=== PATIENT | male | born 1995 | race Caucasian/White ===

== ENCOUNTER 2017-01-10 04:23 | Observation (INO) | payer BC ==
[~2017-01-10] VITALS: Ht 175.3 cm; Wt 77.0 kg
[2017-01-10] MEDS ORDERED: METOCLOPRAMIDE INJ 10MG/2ML VIAL (J2765) As Ordered ONE (04:57)
[2017-01-10] MEDS ORDERED: HYDROmorphone HCL 1 MG/ML SYRINGE (J1170) As Ordered ONE ×2 (04:57→07:24)
[2017-01-10 05:21] LABS: BASO % 0.5 % (0.0-1.0); EOS % 0.7 % (0.0-3.0); LARGE UNSTAINED CELL # 0.1 K/mm3 (0.0-0.4); LARGE UNSTAINED CELL % 1.7 % (0.0-4.0); LYMPH % 11.3 % (24.0-44.0); MEAN CORPUSCULAR HEMOGLOBIN 30.1 pg (27.0-33.0); MEAN CORPUSCULAR HGB CONC 33.1 g/dl (32.0-36.5); MEAN CORPUSCULAR VOLUME 90.9 fl (80.0-96.0); MONO # 0.7 K/mm3 (0.0-0.8); MONO % 8.6 % (0.0-5.0); NEUTROPHILS % 77.3 % (36.0-66.0); PLATELET COUNT, AUTOMATED 229 k/mm3 (150-450); RED CELL DISTRIBUTION WIDTH 13.1 % (11.5-14.5); WHITE BLOOD COUNT 7.8 K/mm3 (4.0-10.0)
[2017-01-10 05:31] LABS: ALBUMIN 3.7 GM/DL (3.2-5.2); ALBUMIN/GLOBULIN RATIO 0.84 (1.00-1.93); ALKALINE PHOSPHATASE 61 U/L (45-117); ALT/SGPT 38 U/L (12-78); AMYLASE 36 U/L (25-115); ANION GAP 10 MEQ/L (8-16); AST/SGOT 23 U/L (15-37); BILIRUBIN,DIRECT 0.1 MG/DL (0.0-0.2); BILIRUBIN,TOTAL 0.5 MG/DL (0.2-1.0); BLOOD UREA NITROGEN 17 MG/DL (7-18); CALCIUM LEVEL 8.4 MG/DL (8.5-10.1); CARBON DIOXIDE LEVEL 28 MEQ/L (21-32); CHLORIDE LEVEL 98 MEQ/L (98-107); CREATININE FOR GFR 1.36 MG/DL (0.70-1.30); GLUCOSE, FASTING 91 MG/DL (70-105); POTASSIUM SERUM 4.1 MEQ/L (3.5-5.1); SODIUM LEVEL 136 MEQ/L (136-145); TOTAL PROTEIN 8.1 GM/DL (6.4-8.2)
[2017-01-10] MEDS ORDERED: ISOVUE-370 76% 100ML VIAL (Q9967) As Ordered ONE (05:39)
--- NOTE | 2017-01-10 06:40 | REPUSA ---
CLINICAL HISTORY: Abdominal pain. TECHNIQUE: Multiple axial, sagittal and coronal CT images were obtained through the abdomen and pelvi s after administration of intravenous contrast material. COMMENTS: The liver is of uniform attenuation without mass or defect. There is no intra or extrahepatic biliary ductal dilatation. The spleen is normal. The gallbladder is within normal limits. The pancreas is of normal contour and attenuation characteristics. There is no evidence of adrenal mass. Both kidneys demonstrate prompt and equal nephrograms. The kidneys are normal in size, shape and conf iguration. There is no evidence of renal or ureteral mass. No renal or ureteral calculi are identifie d. There is no hydroureter or hydronephrosis. Appendix is entirely filled with fluid and contains a small appendicolith, please correlate clinicall y to exclude early or mild acute appendicitis. There is no bowel wall thickening. No evidence for sm all or large bowel obstruction. There is no evidence of abdominal ascites or lymphadenopathy. There is no evidence of intrinsic or extrinsic bladder mass. There is no pelvic ascites or lymphadeno enrique. Images of the lung bases show no evidence of pleural or parenchymal mass. There are no pleural effusi ons. The bony structures are free of lytic or blastic lesions. IMPRESSION: Appendix is entirely filled with fluid and contains a small appendicolith, please correlate clinicall y to exclude early or mild acute appendicitis. Thank you for your kind referral of this patient.
[2017-01-10] MEDS ORDERED: IBUP60TA PO (08:37)
[2017-01-10] MEDS ORDERED: HUMI40KI SC (08:37)
[2017-01-10] MEDS ORDERED: NORCO, ANEXSIA 5/325MG TABLET (HYDROcodone/ACETAMINOPHEN) PO PRN (08:45)
[2017-01-10] MEDS ORDERED: MORPHINE 2 MG/ML 1ML SYRINGE IV PRN (08:45)
--- NOTE | 2017-01-10 09:21 | HPE ---
DATE OF PLACEMENT ON OBSERVATION: 01/10/2017 REASON FOR OBSERVATION: Abdominal pain with nausea and vomiting. HISTORY OF PRESENT ILLNESS: The patient is a 21-year-old man who presented to the emergency department at 04:23 in the morning on January 10 complaining of primarily sharp epigastric pains. The patient describes that he has been ill for perhaps 2 or 3 days. He describes having had some laryngitis with a hoarse voice with sensation of some night time chills over the last 2-3 days. He has not felt like eating for several days. On the , he developed some nausea and had multiple episodes of some bilious vomiting during the course of the afternoon and into the evening. At about 06:00 p.m. on the he noted sharper epigastric pains. He was unable to eat and the pain became intolerable and he presented to the emergency department at 0423 hours. He has been evaluated with some labs and had a CT scan of the abdomen and pelvis performed. The emergency department physician described some right lower quadrant tenderness and the CT scan described some fluid within the appendix with a small appendicolith and I was asked to see the patient regarding the possibility of appendicitis. I do not think he has appendicitis, but he has what I believe to be some form of viral gastroenteritis. He is currently not able to take an oral diet adequately and is therefore not able to take adequate by mouth (p.o.) analgesia so he will be placed on observation until he is capable of tolerating at least a liquid diet and keeping down some oral pain medications. MEDICATIONS: The patient's only routine medication is Humira subcutaneously every other week. His last dose was about 10 days ago. MEDICAL HISTORY: Significant for psoriasis. SURGICAL HISTORY: Significant for a right shoulder procedure. SOCIAL HISTORY: The patient is a never smoker. He is currently attending [employer] for baseball with work study. FAMILY HISTORY: Noncontributory. REVIEW OF SYSTEMS: Review of systems revealed no history of underlying heart, lung or gastrointestinal problems. He denies any recent diarrhea. He has had no dysuria or hematuria. He denies any hematemesis, melena or hematochezia. PHYSICAL EXAMINATION: Reveals a fit appearing young man lying quietly on the hospital stretcher. His most recent vital signs showed a blood pressure of 137/69, pulse of 105, respirations of 18 and a temperature of 100.3. He is alert, oriented and cooperative. He complains primarily of sharper pains in the epigastrium. He does have some nausea. He sounds hoarse when he speaks. Sclerae are anicteric. Mucous membranes are moist to slightly tacky. The neck is supple without mass or bruit. Heart: Exam shows a regular rhythm, but he is slightly tachycardiac at about 100-110. The lungs are clear to auscultation bilaterally. The abdomen is flat. He does have bowel sounds in all four quadrants. There is no evident hernia. There is no tympany to percussion. There is no distinct tenderness to percussion. On palpation he has tenderness in the epigastrium. He does report that palpation in the left upper quadrant and right upper quadrant does seem to cause increased tenderness in the epigastrium. He is soft in the right lower quadrant without evident tenderness in this area. Extremities are without edema and he has palpable radial and dorsalis pedis pulses bilaterally. LABORATORY STUDIES: A CBC showed a white count of 7.8 with a hemoglobin of 16, hematocrit of 48 and a platelet count of 229,000. Differential shows 77% neutrophils, 11% lymphocytes and 9 monocytes. His chemistry profile shows normal electrolytes with a BUN of 17, creatinine 1.36 and a glucose of 91. His liver function tests are normal with a total protein of 8.1 and an albumin of 3.7. Amylase and lipase were normal. Urinalysis shows a specific gravity of 1.029 with a pH of 5.0, 1+ protein, 1+ ketones and is otherwise not suggestive of a urinary tract infection. CT scan was interpreted by the radiologist as showing an appendix filled with fluid and containing a small appendicolith. There were no other areas of concern raised by the radiologist. I reviewed the images myself. There is a small fluid-filled structure which does not appear dilated in the right lower quadrant lateral to the cecum. There is a small calcification within this. There is no obvious inflammatory change surrounding this. There is no free fluid noted within the abdomen. IMPRESSION: Probable viral gastroenteritis, possible influenza. The patient has been ill with some upper respiratory symptoms with hoarseness and fever for 2-3 days and now is having epigastric pain with some nausea and vomiting. This may be an intestinal viral illness, though this could represent influenza. He does not appear able to keep down clear liquids at this time and so providing oral medication will be unsuccessful. Plan is to admit him on observation status. He will be kept on some IV fluid, but will be allowed to take clear liquids as tolerated. He will be provided with some pain medication either orally or IV if necessary. I will have them obtain a test for influenza to see if he is positive. He reports that he did not have a flu shot this year. We will keep him in the hospital long enough to ensure that he is able to take adequate liquids for hydration and therefore also keep down some oral medications if necessary. The patient and his mother were counseled regarding the plan and are agreement.
[2017-01-10] MEDS ORDERED: ONDANSETRON 4MG/2ML VIAL (J2405) As Ordered ONE (09:33)
--- NOTE | 2017-01-10 09:48 | EDDOCDS ---
Physician Documentation [facility] Name: Bhanu Feliciano Age: 21 yrs Sex: Male : 1995 Arrival Date: 01/10/2017 Time: 04:23 Bed 12 Private MD: Disposition: 01/10/17 08:51 Hospitalization ordered by Dakota Solorzano for Inpatient Admission. Preliminary diagnosis is Acute appendicitis. - Bed requested for M PED. - Status is Inpatient Admission. pml - Condition is Stable. - Problem is new. - Symptoms are unchanged. Historical: - Allergies: no known allergies; - Home Meds: 1. Humira 20 mg/0.4 mL subcutaneous sykt every other week - PMHx: Psoriasis; - PSHx: right shoulder surgery; - Social history: Smoking status: Patient states was never smoker of tobacco. No barriers to communication noted, The patient speaks fluent Serbian, Speaks appropriately for age. - Family history: Not pertinent. - : The pt / caregiver states he / she is not on anticoagulants. Home medication list is obtained from the patient. - Exposure Risk Screening:: None identified. Vital Signs: 01/10 04:33 BP 137 / 69; Pulse 105; Resp 18; Temp 100.3; Pulse Ox 97% on R/A; Weight 81.65 kg / sls1 180.01 lbs; Height 5 ft. 9 in. (175.26 cm); Pain 7/10; 07:45 Pain 4/10; pml 08:07 BP 130 / 59; Pulse 94; Resp 18; Temp 100.1(TE); Pulse Ox 96% on R/A; Pain 8/10; rn1 09:46 BP 129 / 80; Pulse 99; Resp 20; Temp 101.1(TE); Pulse Ox 96% on R/A; Pain 6/10; pml 04:33 Body Mass Index 26.58 (81.65 kg, 175.26 cm) sls1 MDM: 04:44 IV Saline Lock ordered. cs11 04:44 NS 0.9% 1000 ml IV at bolus once ordered. cs11 04:44 Dilaudid - HYDROmorphone 0.5 mg IVP once ordered. cs11 04:44 Metoclopramide 10 mg IV at 40 mg/hr once over 15 mins ordered. cs11 04:45 CBC with Diff Ordered. EDMS 04:45 MED Profile Ordered. EDMS 04:45 Liver Profile Ordered. EDMS 04:45 Amylase Ordered. EDMS 04:45 Lipase Ordered. EDMS 04:45 Urinalysis Ordered. EDMS 04:45 Urine Culture Ordered. EDMS 04:46 CT ABD & PELVIS: IV Contrast Only Ordered. EDMS 05:35 CBC with Diff Reviewed. cs11 05:35 MED Profile Reviewed. cs11 05:35 Liver Profile Reviewed. cs11 05:35 Urinalysis Reviewed. cs11 05:35 Amylase Reviewed. cs11 05:35 Lipase Reviewed. cs11 06:27 Financial registration complete. hs2 06:41 [facility] Payment Agreement was scanned into [employer] and attached to record. hs2 07:20 Dilaudid - HYDROmorphone 0.5 mg IVP once ordered. br1 07:20 CT ABD & PELVIS: IV Contrast Only Reviewed. br1 08:23 BED REQUEST+ADM ordered. EDMS 08:42 Admission / Observation Status ordered. EDMS 08:42 CLEAR LIQUIDS DIET ordered. EDMS 08:45 INFLUENZA A&B RAPID ANTIGEN Ordered. EDMS 09:35 Ondansetron 4 mg IVP once ordered. pml 09:47 Acetaminophen Tablet 650 mg PO once ordered. pml Administered Medications: 05:06 Drug: NS 0.9% 1000 ml [sodium chloride 0.9 % intravenous solution] Route: IV; Rate: af2 bolus; Site: right antecubital; 07:06 Follow up: IV Status: Completed infusion; IV Intake: 1000ml pml 05:07 Drug: Dilaudid - HYDROmorphone 0.5 mg [hydromorphone 1 mg/mL injection syringe (0.5 af2 mL)] Route: IVP; Site: right antecubital; 05:07 Drug: Metoclopramide 10 mg [metoclopramide 5 mg/mL injection solution] Route: IV; Rate: af2 40 mg/hr; Infused Over: 15 mins; Site: right antecubital; 07:26 Drug: Dilaudid - HYDROmorphone 0.5 mg [hydromorphone 1 mg/mL injection syringe (0.5 pml mL)] Route: IVP; Site: right antecubital; 07:45 Follow up: Pain 4/10 Adult; Response: Pain is decreased pml 09:35 Drug: Ondansetron 4 mg [ondansetron HCl 2 mg/mL intravenous solution (2 mL)] Route: pml IVP; Site: right antecubital; 09:47 Drug: Acetaminophen 650 mg [acetaminophen 325 mg tablet (2 tabs)] Route: PO; pml 09:47 Follow up: Response: Pt left department before re-evaluation is appropriate pml Signatures: Dispatcher [employer] EDMS Lexis Pérez, Flour Blender Unit deg Dwayne Andrew MD MD br1 Priscilla De Los Santos RN RN sls1 Elisha Conteh RN RN pml Jordan Corrales, DO cs11 Helen Flowers RN RN af2 Layla Richard, Reg Reg hs2 The chart was reviewed and I authenticate all verbal orders and agree with the evaluation and treatment provided.Attachments: 06:41 [facility] Payment Agreement hs2 MTDD
--- NOTE | 2017-01-10 09:48 | EDDOCDS ---
Nurse's Notes [facility] Name: Bhanu Feliciano Age: 21 yrs Sex: Male : 1995 Arrival Date: 01/10/2017 Time: 04:23 Bed 12 Private MD: Diagnosis: Acute appendicitis Presentation: 01/10 04:31 Presenting complaint: Patient states: nausea, vomiting and epigastric pain since sls1 yesterday. Pt also reports chills, denies urinary symptoms. Adult Sepsis Screening: The patient does not have new or worsening altered mentation. Patient's respiratory rate is less than 22. Systolic blood pressure is greater than 100. Patient has a qSOFA score of 0- Negative Sepsis Screen. Suicide/Homicide risk assessment- the patient denies having any suicidal and/or homicidal ideations and does not present with any other emotional, behavioral or mental health complaints. Status: Patient is not a director of volunteer services or dependent. Transition of care: patient was not received from another setting of care. 04:31 Acuity: LITA Level 3 sls1 04:31 Method Of Arrival: Walkin/Carried/Asstd sls1 Triage Assessment: 04:33 General: Appears ill, Behavior is appropriate for age, cooperative. Pain: Location: sls1 epigastric area, right upper quadrant and left upper quadrant Pain currently is 7 out of 10 on a pain scale. Pt Declines HIV testing. The patient is triaged at the bedside. See Assessment in Nurses Notes section of ED record. Neurological: Level of Consciousness is awake, alert. Respiratory: No deficits noted. GI: Reports epigastric pain, nausea, vomiting. Historical: - Allergies: no known allergies; - Home Meds: 1. Humira 20 mg/0.4 mL subcutaneous sykt every other week - PMHx: Psoriasis; - PSHx: right shoulder surgery; - Social history: Smoking status: Patient states was never smoker of tobacco. No barriers to communication noted, The patient speaks fluent Maori, Speaks appropriately for age. - Family history: Not pertinent. - : The pt / caregiver states he / she is not on anticoagulants. Home medication list is obtained from the patient. - Exposure Risk Screening:: None identified. Screenin:10 Screening information is obtained from the patient. Fall risk: No risks identified. af2 Assistance ADL's: requires no assistance with activities of daily living. Abuse/DV Screen: The patient / caregiver reports he/she is: not in a situation that causes fear, pain or injury. Nutritional screening: No deficits noted. Advance Directives: Currently, there is no health care proxy. home support is adequate. Assessment: 05:10 General: Appears in no apparent distress, comfortable, Behavior is appropriate for age, af2 cooperative. GI: Bowel sounds present X 4 quads. Abd is tender to palpation in epigastric area Reports upper abd pain, nausea, vomiting. Derm: Skin is normal. 06:03 Reassessment: Patient appears in no apparent distress at this time. Pt returned from [facility] cat scan tolerated without difficulty, IV fluids infusing without difficulty, family at bedside. 07:05 General: Appears in no apparent distress, Behavior is appropriate for age, cooperative. pml Pain: Location: epigastric area. Neurological: Level of Consciousness is awake, alert, Oriented to person, place, time. Cardiovascular: Capillary refill < 3 seconds. Respiratory: Airway is patent Respiratory effort is even, unlabored. GI: Abdomen is non- distended Abd is tender to palpation in epigastric area. Derm: Skin is pink, warm & dry. 07:27 General: reports epigastric pain increased, 7/10. medicated as indicated on emar. pml 08:04 General: MD Solorzano in to see patient. pml 08:52 General: Appears in no apparent distress, comfortable, Behavior is appropriate for age, pml cooperative. Pain: Location: epigastric area Pain currently is 5 out of 10 on a pain scale. Neurological: Level of Consciousness is awake, alert, Oriented to person, place, time. Cardiovascular: Capillary refill < 3 seconds. Respiratory: Airway is patent Respiratory effort is even, unlabored. Derm: Skin is pink, warm & dry. 09:43 General: Appears in no apparent distress, comfortable, Behavior is appropriate for age, pml cooperative. Pain: Location: epigastric area. Neurological: Level of Consciousness is awake, alert, Oriented to person, place, time. Cardiovascular: Capillary refill < 3 seconds. Respiratory: Airway is patent Respiratory effort is even, unlabored. GI: Abdomen is non- distended. Derm: Skin is pink, warm & dry. Vital Signs: 04:33 BP 137 / 69; Pulse 105; Resp 18; Temp 100.3; Pulse Ox 97% on R/A; Weight 81.65 kg; sls1 Height 5 ft. 9 in. (175.26 cm); Pain 7/10; 07:45 Pain 4/10; pml 08:07 BP 130 / 59; Pulse 94; Resp 18; Temp 100.1(TE); Pulse Ox 96% on R/A; Pain 8/10; rn1 09:46 BP 129 / 80; Pulse 99; Resp 20; Temp 101.1(TE); Pulse Ox 96% on R/A; Pain 6/10; pml 04:33 Body Mass Index 26.58 (81.65 kg, 175.26 cm) [facility] Vitals: 04:33 Log In Time: January 10, 2017 at 04:24. [facility] ED Course: 04:24 Patient visited by Layla Richard Reg. hs2 04:24 Patient moved to Waiting hs2 04:25 Patient moved to 12 [facility] 04:32 Jordan Corrales DO is Attending Physician. cs11 04:32 Patient visited by Jordan Corrales DO. 11 04:32 Triage Initiated [facility] 05:05 Inserted saline lock: 18 gauge in right antecubital area and blood collected. The [facility] patient tolerated the procedure well. Labs drawn. (by ED staff). Sent per order to lab. Urine collected. Clean catch specimen. Urine specimen sent to lab. 05:06 Urine Culture Sent. af2 05:06 Urinalysis Sent. af2 05:06 Lipase Sent. af2 05:06 Amylase Sent. af2 05:06 Liver Profile Sent. af2 05:06 MED Profile Sent. af2 05:06 CBC with Diff Sent. af2 05:10 Patient visited by Priscilla De Los Santos RN. sls1 05:11 Patient visited by Helen Flowers RN. af2 06:04 Patient visited by Priscilla De Los Santos RN. sls1 06:40 Patient visited by Helen Flowers RN. af2 06:40 Patient visited by Helen Flowers RN. af2 06:41 Patient visited by Helen Flowers RN. af2 06:41 [facility] Payment Agreement was scanned into [employer] and attached to record. hs2 06:42 Patient name changed from Bhanu\S\S\S\Jodie\S\ to Bhanu\S\Damien\S\Jodie. EDMS 06:58 Elisha Conteh,RN is Primary Nurse. pml 07:01 Attending Physician role handed off by Jordan Corrales DO br1 07:01 Dwayne Andrew MD is Attending Physician. br1 07:02 CT ABD & PELVIS: IV Contrast Only Returned. EDMS 07:07 Patient visited by Elisha Conteh,RN. pml 07:28 Patient visited by Elisha Conteh,[place]. pml 08:04 Patient visited by Elisha Conteh,[place]. pml 08:51 Dakota Solorzano is Hospitalizing Provider. br1 08:53 Patient visited by Elisha Conteh RN. pml 09:43 The patient / caregiver is instructed regarding the plan of care and ED course. Patient pml has correct armband on for positive identification. Placed in gown. Bed in low position. Call light in reach. Side rails up X2. 09:43 No procedures done that require assistance. pml Administered Medications: 05:06 Drug: NS 0.9% 1000 ml [sodium chloride 0.9 % intravenous solution] Route: IV; Rate: af2 bolus; Site: right antecubital; 07:06 Follow up: IV Status: Completed infusion; IV Intake: 1000ml pml 05:07 Drug: Dilaudid - HYDROmorphone 0.5 mg [hydromorphone 1 mg/mL injection syringe (0.5 af2 mL)] Route: IVP; Site: right antecubital; 05:07 Drug: Metoclopramide 10 mg [metoclopramide 5 mg/mL injection solution] Route: IV; Rate: af2 40 mg/hr; Infused Over: 15 mins; Site: right antecubital; 07:26 Drug: Dilaudid - HYDROmorphone 0.5 mg [hydromorphone 1 mg/mL injection syringe (0.5 pml mL)] Route: IVP; Site: right antecubital; 07:45 Follow up: Pain 4/10 Adult; Response: Pain is decreased pml 09:35 Drug: Ondansetron 4 mg [ondansetron HCl 2 mg/mL intravenous solution (2 mL)] Route: pml IVP; Site: right antecubital; 09:47 Drug: Acetaminophen 650 mg [acetaminophen 325 mg tablet (2 tabs)] Route: PO; pml 09:47 Follow up: Response: Pt left department before re-evaluation is appropriate pml Intake: 07:06 IV: 1000.00ml; Total: 1000.00ml. pml Order Results: Lab Order: CBC with Diff; SPEC'M 01/10/17 05:01 Test: WHITE BLOOD COUNT; Value: 7.8; Range: 4.0-10.0; Units: K/mm3; Status: F Test: RED BLOOD COUNT; Value: 5.26; Range: 4.30-6.10; Units: M/mm3; Status: F Test: HEMOGLOBIN; Value: 15.8; Range: 14.0-18.0; Units: g/dl; Status: F Test: HEMATOCRIT; Value: 47.8; Range: 42.0-52.0; Units: %; Status: F Test: MEAN CORPUSCULAR VOLUME; Value: 90.9; Range: 80.0-96.0; Units: fl; Status: F Test: MEAN CORPUSCULAR HEMOGLOBIN; Value: 30.1; Range: 27.0-33.0; Units: pg; Status: F Test: MEAN CORPUSCULAR HGB CONC; Value: 33.1; Range: 32.0-36.5; Units: g/dl; Status: F Test: RED CELL DISTRIBUTION WIDTH; Value: 13.1; Range: 11.5-14.5; Units: %; Status: F Test: PLATELET COUNT, AUTOMATED; Value: 229; Range: 150-450; Units: k/mm3; Status: F Test: NEUTROPHILS %; Value: 77.3; Range: 36.0-66.0; Abnormal: Above high normal; Units: %; Status: F Test: LYMPH %; Value: 11.3; Range: 24.0-44.0; Abnormal: Below low normal; Units: %; Status: F Test: MONO %; Value: 8.6; Range: 0.0-5.0; Abnormal: Above high normal; Units: %; Status: F Test: EOS %; Value: 0.7; Range: 0.0-3.0; Units: %; Status: F Test: BASO %; Value: 0.5; Range: 0.0-1.0; Units: %; Status: F Test: LARGE UNSTAINED CELL %; Value: 1.7; Range: 0.0-4.0; Units: %; Status: F Test: NEUTROPHILS #; Value: 6.0; Range: 1.8-7.7; Units: K/mm3; Status: F Test: LYMPH #; Value: 1.0; Range: 1.5-6.5; Abnormal: Below low normal; Units: K/mm3; Status: F Test: MONO #; Value: 0.7; Range: 0.0-0.8; Units: K/mm3; Status: F Test: EOS #; Value: 0.0; Range: 0.0-0.50; Units: K/mm3; Status: F Test: BASO #; Value: 0.0; Range: 0.0-0.2; Units: K/mm3; Status: F Test: LARGE UNSTAINED CELL #; Value: 0.1; Range: 0.0-0.4; Units: K/mm3; Status: F Lab Order: MED Profile; SPEC'M 01/10/17 05:01 Test: GLUCOSE, FASTING; Value: 91; Range: 70-105; Units: MG/DL; Status: F Test: BLOOD UREA NITROGEN; Value: 17; Range: 7-18; Units: MG/DL; Status: F Test: CREATININE FOR GFR; Value: 1.36; Range: 0.70-1.30; Abnormal: Above high normal; Units: MG/DL; Status: F Test: SODIUM LEVEL; Value: 136; Range: 136-145; Units: MEQ/L; Status: F Test: POTASSIUM SERUM; Value: 4.1; Range: 3.5-5.1; Units: MEQ/L; Status: F Test: CHLORIDE LEVEL; Value: 98; Range: 98-107; Units: MEQ/L; Status: F Test: CARBON DIOXIDE LEVEL; Value: 28; Range: 21-32; Units: MEQ/L; Status: F Test: ANION GAP; Value: 10; Range: 8-16; Units: MEQ/L; Status: F Test: CALCIUM LEVEL; Value: 8.4; Range: 8.5-10.1; Abnormal: Below low normal; Units: MG/DL; Status: F Lab Order: Liver Profile; SPEC'M 01/10/17 05:01 Test: AST/SGOT; Value: 23; Range: 15-37; Units: U/L; Status: F Test: ALT/SGPT; Value: 38; Range: 12-78; Units: U/L; Status: F Test: ALKALINE PHOSPHATASE; Value: 61; Range: 45-117; Units: U/L; Status: F Test: BILIRUBIN,TOTAL; Value: 0.5; Range: 0.2-1.0; Units: MG/DL; Status: F Test: BILIRUBIN,DIRECT; Value: 0.1; Range: 0.0-0.2; Units: MG/DL; Status: F Test: TOTAL PROTEIN; Value: 8.1; Range: 6.4-8.2; Units: GM/DL; Status: F Test: ALBUMIN; Value: 3.7; Range: 3.2-5.2; Units: GM/DL; Status: F Test: ALBUMIN/GLOBULIN RATIO; Value: 0.84; Range: 1.00-1.93; Abnormal: Below low normal; Status: F Lab Order: Amylase; [facility] 01/10/17 05:01 Test: AMYLASE; Value: 36; Range: 25-115; Units: U/L; Status: F Lab Order: Lipase; [facility] 01/10/17 05:01 Test: LIPASE; Value: 87; Range: 73-393; Units: U/L; Status: F Lab Order: Urinalysis; [facility] 01/10/17 05:01 Test: APPEARANCE, URINE; Value: HAZY; Range: CLEAR; Status: F Test: COLOR, URINE; Value: YELLOW; Range: YELLOW; Status: F Test: PH,URINE; Value: 5.0; Range: 5.0-9.0; Units: UNITS; Status: F Test: SPECIFIC GRAVITY URINE AUTO; Value: 1.029; Range: 1.002-1.035; Status: F Test: PROTEIN, URINE AUTO; Value: 1+; Range: NEGATIVE; Abnormal: Above high normal; Units: mg/dL; Status: F Test: GLUCOSE, URINE (UA) AUTO; Value: NEGATIVE; Range: NEGATIVE; Units: mg/dL; Status: F Test: KETONE, URINE AUTO; Value: 1+; Range: NEGATIVE; Abnormal: Above high normal; Units: mg/dL; Status: F Test: UROBILINOGEN, URINE AUTO; Value: 0.2; Range: 0.0-2.0; Units: mg/dL; Status: F Test: BILIRUBIN, URINE AUTO; Value: NEGATIVE; Range: NEGATIVE; Status: F Test: NITRITE, URINE AUTO; Value: NEGATIVE; Range: NEGATIVE; Status: F Test: LEUKOCYTE ESTERASE, URINE AUTO; Value: NEGATIVE; Range: NEGATIVE; Status: F Test: BLOOD, URINE BLOOD; Value: NEGATIVE; Range: NEGATIVE; Status: F Test: WBC, URINE AUTO; Value: 1; Range: 0-3; Units: /HPF; Status: F Test: RBC, URINE AUTO; Value: 1; Range: 0-3; Units: /HPF; Status: F Test: BACTERIA, URINE AUTO; Value: NEGATIVE; Range: NEGATIVE; Status: F Test: SQUAMOUS EPITHELIAL CELL UR AU; Value: 0; Range: 0-6; Units: /HPF; Status: F Test: MUCUS, URINE; Value: SMALL; Range: NEGATIVE; Status: F Test: HYALINE CAST, URINE AUTO; Value: 0; Range: 0-1; Units: /LPF; Status: F Lab Order: INFLUENZA A&B RAPID ANTIGEN; SPEC'M 01/10/17 08:51 Test: INFLUENZA A RAPID SCR by ICA; Value: INFLUENZA A RESULTS NEGATIVE; Status: F Test: INFLUENZA A RAPID SCR by ICA; Value: Comments:; Status: F Test: INFLUENZA B RAPID SCR by ICA; Value: INFLUENZA B RESULTS NEGATIVE; Status: F Test Note: ; The Influenza test is a direct rapid immunoassay for the qualitative detection of Influenza viral antigen. Cell culture (Viral Culture) testing should be considered to confirm NEGATIVE results and to assist in detecting other viruses that can provide similar clinical symptoms. Please contact the lab within 24 hours ([phone]) if confirmatory testing is desired. Radiology Order: CT ABD & PELVIS: IV Contrast Only Test: CT ABD & PELVIS: IV Contrast Only REASON FOR EXAMINATION: Abdomen Pain; ; CLINICAL HISTORY: Abdominal pain.; TECHNIQUE: Multiple axial, sagittal and coronal CT images were obtained through the abdomen and pelvi; s after administration of intravenous contrast material.; COMMENTS:; The liver is of uniform attenuation without mass or defect. There is no intra or extrahepatic biliary; ductal dilatation. The spleen is normal. The gallbladder is within normal limits. The pancreas is of; normal contour and attenuation characteristics. There is no evidence of adrenal mass.; Both kidneys demonstrate prompt and equal nephrograms. The kidneys are normal in size, shape and conf; iguration. There is no evidence of renal or ureteral mass. No renal or ureteral calculi are identifie; d. There is no hydroureter or hydronephrosis.; Appendix is entirely filled with fluid and contains a small appendicolith, please correlate clinicall; y to exclude early or mild acute appendicitis. There is no bowel wall thickening. No evidence for sm; all or large bowel obstruction. There is no evidence of abdominal ascites or lymphadenopathy.; There is no evidence of intrinsic or extrinsic bladder mass. There is no pelvic ascites or lymphadeno; enrique.; Images of the lung bases show no evidence of pleural or parenchymal mass. There are no pleural effusi; ons.; The bony structures are free of lytic or blastic lesions.; IMPRESSION:; Appendix is entirely filled with fluid and contains a small appendicolith, please correlate clinicall; y to exclude early or mild acute appendicitis.; Thank you for your kind referral of this patient.; ; Outcome: 06:04 CT Study completed. sls1 08:51 Decision to Hospitalize by Provider. br1 09:43 Discharge Assessment: Patient awake, alert and oriented x 3. No cognitive and/or pml functional deficits noted. Patient verbalized understanding of disposition instructions. patient administered narcotics - yes. Patient was admitted to the hospital or transferred to another facility. The following High Risk Discharge criteria are identified: None. Admitted to Pediatrics accompanied by tech, via wheelchair, with chart. Condition: stable. Property :Personal belongings accompany Pt. 09:47 Patient left the ED. pml Signatures: Dispatcher [employer] EDMS Dwayne Andrew MD MD br1 Priscilla De Los Santos RN RN sls1 Elisha Conteh RN RN pml Jordan Corrales DO DO cs11 Helen Flowers RN RN af2 Dakota Boland rn1 Layla Richard, Reg Reg hs2 MTDD
[2017-01-10] MEDS ORDERED: ACETAMINOPHEN 325 MG TAB As Ordered ONE (09:49)
[2017-01-10 10:00] VITALS: BP 135/65
[2017-01-10] MEDS: PANTOPRAZOLE 40MG INJ (PROTONIX) (C9113) IV SCH (10:25)
[2017-01-10] MEDS: KETOROLAC 30 MG/ML VIAL (J1885) IV PRN ×2 (10:25→16:30)
[2017-01-10] MEDS: LR 1,000 ML IV SCH ×2 (10:25→18:19)
[2017-01-10] MEDS: METOCLOPRAMIDE INJ 10MG/2ML VIAL (J2765) IV PRN (10:42)
[2017-01-10 14:00] VITALS: BP 129/62
[2017-01-10 16:00] VITALS: BP 129/62
[2017-01-10] MEDS: ONDANSETRON 4MG/2ML VIAL (J2405) IV PRN (16:29)
[2017-01-10 18:00] VITALS: BP 118/58
[2017-01-10 20:00] VITALS: BP 128/74
[2017-01-11 00:30] VITALS: BP 140/93
[2017-01-11] MEDS: ACETAMINOPHEN TAB 650MG DOSE (2X325MG) PO PRN ×2 (00:47→05:45)
[2017-01-11] MEDS: LR 1,000 ML IV SCH (01:57)
[2017-01-11 05:00] VITALS: BP 139/75
[2017-01-11] MEDS: ONDANSETRON 4MG/2ML VIAL (J2405) IV PRN (05:45)
[2017-01-11 08:00] VITALS: BP 127/65
[2017-01-11] MEDS: PANTOPRAZOLE 40MG INJ (PROTONIX) (C9113) IV SCH (09:12)
[2017-01-11] MEDS: METOCLOPRAMIDE INJ 10MG/2ML VIAL (J2765) IV PRN (09:12)
[2017-01-11] MEDS: KETOROLAC 30 MG/ML VIAL (J1885) IV PRN (09:13)
--- NOTE | 2017-01-12 10:48 | EDDOCDS ---
Physician Documentation [facility] Name: Bhanu Feliciano Age: 21 yrs Sex: Male : 1995 Arrival Date: 01/10/2017 Time: 04:23 Bed 12 Private MD: Disposition: 01/10/17 08:51 Hospitalization ordered by Dakota Solorzano for Inpatient Admission. Preliminary diagnosis is Acute appendicitis. - Bed requested for M PED. - Status is Inpatient Admission. pml - Condition is Stable. - Problem is new. - Symptoms are unchanged. Historical: - Allergies: no known allergies; - Home Meds: 1. Humira 20 mg/0.4 mL subcutaneous sykt every other week - PMHx: Psoriasis; - PSHx: right shoulder surgery; - Social history: Smoking status: Patient states was never smoker of tobacco. No barriers to communication noted, The patient speaks fluent Latvian, Speaks appropriately for age. - Family history: Not pertinent. - : The pt / caregiver states he / she is not on anticoagulants. Home medication list is obtained from the patient. - Exposure Risk Screening:: None identified. Vital Signs: 01/10 04:33 BP 137 / 69; Pulse 105; Resp 18; Temp 100.3; Pulse Ox 97% on R/A; Weight 81.65 kg / sls1 180.01 lbs; Height 5 ft. 9 in. (175.26 cm); Pain 7/10; 07:45 Pain 4/10; pml 08:07 BP 130 / 59; Pulse 94; Resp 18; Temp 100.1(TE); Pulse Ox 96% on R/A; Pain 8/10; rn1 09:46 BP 129 / 80; Pulse 99; Resp 20; Temp 101.1(TE); Pulse Ox 96% on R/A; Pain 6/10; pml 04:33 Body Mass Index 26.58 (81.65 kg, 175.26 cm) sls1 MDM: 04:44 IV Saline Lock ordered. cs11 04:44 NS 0.9% 1000 ml IV at bolus once ordered. cs11 04:44 Dilaudid - HYDROmorphone 0.5 mg IVP once ordered. cs11 04:44 Metoclopramide 10 mg IV at 40 mg/hr once over 15 mins ordered. cs11 04:45 CBC with Diff Ordered. EDMS 04:45 MED Profile Ordered. EDMS 04:45 Liver Profile Ordered. EDMS 04:45 Amylase Ordered. EDMS 04:45 Lipase Ordered. EDMS 04:45 Urinalysis Ordered. EDMS 04:45 Urine Culture Ordered. EDMS 04:46 CT ABD & PELVIS: IV Contrast Only Ordered. EDMS 05:35 CBC with Diff Reviewed. cs11 05:35 MED Profile Reviewed. cs11 05:35 Liver Profile Reviewed. cs11 05:35 Urinalysis Reviewed. cs11 05:35 Amylase Reviewed. cs11 05:35 Lipase Reviewed. cs11 06:27 Financial registration complete. hs2 06:41 [facility] Payment Agreement was scanned into [employer] and attached to record. hs2 07:20 Dilaudid - HYDROmorphone 0.5 mg IVP once ordered. br1 07:20 CT ABD & PELVIS: IV Contrast Only Reviewed. br1 08:23 BED REQUEST+ADM ordered. EDMS 08:42 Admission / Observation Status ordered. EDMS 08:42 CLEAR LIQUIDS DIET ordered. EDMS 08:45 INFLUENZA A&B RAPID ANTIGEN Ordered. EDMS 09:35 Ondansetron 4 mg IVP once ordered. pml 09:47 Acetaminophen Tablet 650 mg PO once ordered. pml 13:33 T-Sheet-- Draft Copy was scanned into [employer] and attached to record. [facility] Administered Medications: 05:06 Drug: NS 0.9% 1000 ml [sodium chloride 0.9 % intravenous solution] Route: IV; Rate: af2 bolus; Site: right antecubital; 07:06 Follow up: IV Status: Completed infusion; IV Intake: 1000ml pml 05:07 Drug: Dilaudid - HYDROmorphone 0.5 mg [hydromorphone 1 mg/mL injection syringe (0.5 af2 mL)] Route: IVP; Site: right antecubital; 05:07 Drug: Metoclopramide 10 mg [metoclopramide 5 mg/mL injection solution] Route: IV; Rate: af2 40 mg/hr; Infused Over: 15 mins; Site: right antecubital; 07:26 Drug: Dilaudid - HYDROmorphone 0.5 mg [hydromorphone 1 mg/mL injection syringe (0.5 pml mL)] Route: IVP; Site: right antecubital; 07:45 Follow up: Pain 4/10 Adult; Response: Pain is decreased pml 09:35 Drug: Ondansetron 4 mg [ondansetron HCl 2 mg/mL intravenous solution (2 mL)] Route: pml IVP; Site: right antecubital; 09:47 Drug: Acetaminophen 650 mg [acetaminophen 325 mg tablet (2 tabs)] Route: PO; pml 09:47 Follow up: Response: Pt left department before re-evaluation is appropriate pml Signatures: Dispatcher [employer] EDMS Lexis Pérez, International Trade Compliance Manager Unit deg Dwayne Andrew MD MD br1 Priscilla De Los Santos RN RN sls1 Elisha ContehRN RN pml Jordan Corrales, DO cs11 Helen Flowers RN RN af2 Layla Richard, Reg Reg hs2 Charlene Richardson se The chart was reviewed and I authenticate all verbal orders and agree with the evaluation and treatment provided.Attachments: 06:41 [facility] Payment Agreement hs2 13:33 T-Sheet-- Draft Copy [facility] Chart Complete MTDD
--- NOTE | 2017-01-12 10:48 | EDDOCDS ---
Physician Documentation [facility] Name: Bhanu Feliciano Age: 21 yrs Sex: Male : 1995 Arrival Date: 01/10/2017 Time: 04:23 Bed 12 Private MD: Disposition: 01/10/17 08:51 Hospitalization ordered by Dakota Solorzano for Inpatient Admission. Preliminary diagnosis is Acute appendicitis. - Bed requested for M PED. - Status is Inpatient Admission. pml - Condition is Stable. - Problem is new. - Symptoms are unchanged. Historical: - Allergies: no known allergies; - Home Meds: 1. Humira 20 mg/0.4 mL subcutaneous sykt every other week - PMHx: Psoriasis; - PSHx: right shoulder surgery; - Social history: Smoking status: Patient states was never smoker of tobacco. No barriers to communication noted, The patient speaks fluent Korean, Speaks appropriately for age. - Family history: Not pertinent. - : The pt / caregiver states he / she is not on anticoagulants. Home medication list is obtained from the patient. - Exposure Risk Screening:: None identified. Vital Signs: 01/10 04:33 BP 137 / 69; Pulse 105; Resp 18; Temp 100.3; Pulse Ox 97% on R/A; Weight 81.65 kg / sls1 180.01 lbs; Height 5 ft. 9 in. (175.26 cm); Pain 7/10; 07:45 Pain 4/10; pml 08:07 BP 130 / 59; Pulse 94; Resp 18; Temp 100.1(TE); Pulse Ox 96% on R/A; Pain 8/10; rn1 09:46 BP 129 / 80; Pulse 99; Resp 20; Temp 101.1(TE); Pulse Ox 96% on R/A; Pain 6/10; pml 04:33 Body Mass Index 26.58 (81.65 kg, 175.26 cm) sls1 MDM: 04:44 IV Saline Lock ordered. cs11 04:44 NS 0.9% 1000 ml IV at bolus once ordered. cs11 04:44 Dilaudid - HYDROmorphone 0.5 mg IVP once ordered. cs11 04:44 Metoclopramide 10 mg IV at 40 mg/hr once over 15 mins ordered. cs11 04:45 CBC with Diff Ordered. EDMS 04:45 MED Profile Ordered. EDMS 04:45 Liver Profile Ordered. EDMS 04:45 Amylase Ordered. EDMS 04:45 Lipase Ordered. EDMS 04:45 Urinalysis Ordered. EDMS 04:45 Urine Culture Ordered. EDMS 04:46 CT ABD & PELVIS: IV Contrast Only Ordered. EDMS 05:35 CBC with Diff Reviewed. cs11 05:35 MED Profile Reviewed. cs11 05:35 Liver Profile Reviewed. cs11 05:35 Urinalysis Reviewed. cs11 05:35 Amylase Reviewed. cs11 05:35 Lipase Reviewed. cs11 06:27 Financial registration complete. hs2 06:41 [facility] Payment Agreement was scanned into [employer] and attached to record. hs2 07:20 Dilaudid - HYDROmorphone 0.5 mg IVP once ordered. br1 07:20 CT ABD & PELVIS: IV Contrast Only Reviewed. br1 08:23 BED REQUEST+ADM ordered. EDMS 08:42 Admission / Observation Status ordered. EDMS 08:42 CLEAR LIQUIDS DIET ordered. EDMS 08:45 INFLUENZA A&B RAPID ANTIGEN Ordered. EDMS 09:35 Ondansetron 4 mg IVP once ordered. pml 09:47 Acetaminophen Tablet 650 mg PO once ordered. pml 13:33 T-Sheet-- Draft Copy was scanned into [employer] and attached to record. [facility] Administered Medications: 05:06 Drug: NS 0.9% 1000 ml [sodium chloride 0.9 % intravenous solution] Route: IV; Rate: af2 bolus; Site: right antecubital; 07:06 Follow up: IV Status: Completed infusion; IV Intake: 1000ml pml 05:07 Drug: Dilaudid - HYDROmorphone 0.5 mg [hydromorphone 1 mg/mL injection syringe (0.5 af2 mL)] Route: IVP; Site: right antecubital; 05:07 Drug: Metoclopramide 10 mg [metoclopramide 5 mg/mL injection solution] Route: IV; Rate: af2 40 mg/hr; Infused Over: 15 mins; Site: right antecubital; 07:26 Drug: Dilaudid - HYDROmorphone 0.5 mg [hydromorphone 1 mg/mL injection syringe (0.5 pml mL)] Route: IVP; Site: right antecubital; 07:45 Follow up: Pain 4/10 Adult; Response: Pain is decreased pml 09:35 Drug: Ondansetron 4 mg [ondansetron HCl 2 mg/mL intravenous solution (2 mL)] Route: pml IVP; Site: right antecubital; 09:47 Drug: Acetaminophen 650 mg [acetaminophen 325 mg tablet (2 tabs)] Route: PO; pml 09:47 Follow up: Response: Pt left department before re-evaluation is appropriate pml Signatures: Dispatcher [employer] EDMS Lexis Pérez, Head Cashier Unit deg Dwayne Andrew MD MD br1 Priscilla De Los Santos RN RN sls1 Elisha ContehRN RN pml Jordan Corrales, DO cs11 Helen Flowers RN RN af2 Layla Richard, Reg Reg hs2 Charlene Richardson se The chart was reviewed and I authenticate all verbal orders and agree with the evaluation and treatment provided.Attachments: 06:41 [facility] Payment Agreement hs2 13:33 T-Sheet-- Draft Copy [facility] Chart Complete MTDD
--- NOTE | 2017-01-12 10:49 | EDDOCDS ---
Nurse's Notes [facility] Name: Bhanu Feliciano Age: 21 yrs Sex: Male : 1995 Arrival Date: 01/10/2017 Time: 04:23 Bed 12 Private MD: Diagnosis: Acute appendicitis Presentation: 01/10 04:31 Presenting complaint: Patient states: nausea, vomiting and epigastric pain since sls1 yesterday. Pt also reports chills, denies urinary symptoms. Adult Sepsis Screening: The patient does not have new or worsening altered mentation. Patient's respiratory rate is less than 22. Systolic blood pressure is greater than 100. Patient has a qSOFA score of 0- Negative Sepsis Screen. Suicide/Homicide risk assessment- the patient denies having any suicidal and/or homicidal ideations and does not present with any other emotional, behavioral or mental health complaints. Status: Patient is not a service architect or dependent. Transition of care: patient was not received from another setting of care. 04:31 Acuity: LITA Level 3 sls1 04:31 Method Of Arrival: Walkin/Carried/Asstd sls1 Triage Assessment: 04:33 General: Appears ill, Behavior is appropriate for age, cooperative. Pain: Location: sls1 epigastric area, right upper quadrant and left upper quadrant Pain currently is 7 out of 10 on a pain scale. Pt Declines HIV testing. The patient is triaged at the bedside. See Assessment in Nurses Notes section of ED record. Neurological: Level of Consciousness is awake, alert. Respiratory: No deficits noted. GI: Reports epigastric pain, nausea, vomiting. Historical: - Allergies: no known allergies; - Home Meds: 1. Humira 20 mg/0.4 mL subcutaneous sykt every other week - PMHx: Psoriasis; - PSHx: right shoulder surgery; - Social history: Smoking status: Patient states was never smoker of tobacco. No barriers to communication noted, The patient speaks fluent Latvian, Speaks appropriately for age. - Family history: Not pertinent. - : The pt / caregiver states he / she is not on anticoagulants. Home medication list is obtained from the patient. - Exposure Risk Screening:: None identified. Screenin:10 Screening information is obtained from the patient. Fall risk: No risks identified. af2 Assistance ADL's: requires no assistance with activities of daily living. Abuse/DV Screen: The patient / caregiver reports he/she is: not in a situation that causes fear, pain or injury. Nutritional screening: No deficits noted. Advance Directives: Currently, there is no health care proxy. home support is adequate. Assessment: 05:10 General: Appears in no apparent distress, comfortable, Behavior is appropriate for age, af2 cooperative. GI: Bowel sounds present X 4 quads. Abd is tender to palpation in epigastric area Reports upper abd pain, nausea, vomiting. Derm: Skin is normal. 06:03 Reassessment: Patient appears in no apparent distress at this time. Pt returned from [facility] cat scan tolerated without difficulty, IV fluids infusing without difficulty, family at bedside. 07:05 General: Appears in no apparent distress, Behavior is appropriate for age, cooperative. pml Pain: Location: epigastric area. Neurological: Level of Consciousness is awake, alert, Oriented to person, place, time. Cardiovascular: Capillary refill < 3 seconds. Respiratory: Airway is patent Respiratory effort is even, unlabored. GI: Abdomen is non- distended Abd is tender to palpation in epigastric area. Derm: Skin is pink, warm & dry. 07:27 General: reports epigastric pain increased, 7/10. medicated as indicated on emar. pml 08:04 General: MD Solorzano in to see patient. pml 08:52 General: Appears in no apparent distress, comfortable, Behavior is appropriate for age, pml cooperative. Pain: Location: epigastric area Pain currently is 5 out of 10 on a pain scale. Neurological: Level of Consciousness is awake, alert, Oriented to person, place, time. Cardiovascular: Capillary refill < 3 seconds. Respiratory: Airway is patent Respiratory effort is even, unlabored. Derm: Skin is pink, warm & dry. 09:43 General: Appears in no apparent distress, comfortable, Behavior is appropriate for age, pml cooperative. Pain: Location: epigastric area. Neurological: Level of Consciousness is awake, alert, Oriented to person, place, time. Cardiovascular: Capillary refill < 3 seconds. Respiratory: Airway is patent Respiratory effort is even, unlabored. GI: Abdomen is non- distended. Derm: Skin is pink, warm & dry. Vital Signs: 04:33 BP 137 / 69; Pulse 105; Resp 18; Temp 100.3; Pulse Ox 97% on R/A; Weight 81.65 kg; sls1 Height 5 ft. 9 in. (175.26 cm); Pain 7/10; 07:45 Pain 4/10; pml 08:07 BP 130 / 59; Pulse 94; Resp 18; Temp 100.1(TE); Pulse Ox 96% on R/A; Pain 8/10; rn1 09:46 BP 129 / 80; Pulse 99; Resp 20; Temp 101.1(TE); Pulse Ox 96% on R/A; Pain 6/10; pml 04:33 Body Mass Index 26.58 (81.65 kg, 175.26 cm) [facility] Vitals: 04:33 Log In Time: January 10, 2017 at 04:24. [facility] ED Course: 04:24 Patient visited by Layla Richard Reg. hs2 04:24 Patient moved to Waiting hs2 04:25 Patient moved to 12 [facility] 04:32 Jordan Corrales DO is Attending Physician. cs11 04:32 Patient visited by Jordan Corrales DO. 11 04:32 Triage Initiated [facility] 05:05 Inserted saline lock: 18 gauge in right antecubital area and blood collected. The [facility] patient tolerated the procedure well. Labs drawn. (by ED staff). Sent per order to lab. Urine collected. Clean catch specimen. Urine specimen sent to lab. 05:06 Urine Culture Sent. af2 05:06 Urinalysis Sent. af2 05:06 Lipase Sent. af2 05:06 Amylase Sent. af2 05:06 Liver Profile Sent. af2 05:06 MED Profile Sent. af2 05:06 CBC with Diff Sent. af2 05:10 Patient visited by Priscilla De Los Santos RN. sls1 05:11 Patient visited by Helen Flowers RN. af2 06:04 Patient visited by Priscilla De Los Santos RN. sls1 06:40 Patient visited by Helen Flowers RN. af2 06:40 Patient visited by Helen Flowers RN. af2 06:41 Patient visited by Helen Flowers RN. af2 06:41 [facility] Payment Agreement was scanned into [employer] and attached to record. hs2 06:42 Patient name changed from Bhanu\S\S\S\Jodie\S\ to Bhanu\S\Damien\S\Jodie. EDMS 06:58 Elisha Conteh,RN is Primary Nurse. pml 07:01 Attending Physician role handed off by Jordan Corrales DO br1 07:01 Dwayne Andrew MD is Attending Physician. br1 07:02 CT ABD & PELVIS: IV Contrast Only Returned. EDMS 07:07 Patient visited by Elisha Conteh,RN. pml 07:28 Patient visited by Elisha Conteh,[place]. pml 08:04 Patient visited by Elisha Conteh,[place]. pml 08:51 Dakota Solorzano is Hospitalizing Provider. br1 08:53 Patient visited by Elisha Conteh RN. pml 09:43 The patient / caregiver is instructed regarding the plan of care and ED course. Patient pml has correct armband on for positive identification. Placed in gown. Bed in low position. Call light in reach. Side rails up X2. 09:43 No procedures done that require assistance. pml 13:33 T-Sheet-- Draft Copy was scanned into [employer] and attached to record. seh Administered Medications: 05:06 Drug: NS 0.9% 1000 ml [sodium chloride 0.9 % intravenous solution] Route: IV; Rate: af2 bolus; Site: right antecubital; 07:06 Follow up: IV Status: Completed infusion; IV Intake: 1000ml pml 05:07 Drug: Dilaudid - HYDROmorphone 0.5 mg [hydromorphone 1 mg/mL injection syringe (0.5 af2 mL)] Route: IVP; Site: right antecubital; 05:07 Drug: Metoclopramide 10 mg [metoclopramide 5 mg/mL injection solution] Route: IV; Rate: af2 40 mg/hr; Infused Over: 15 mins; Site: right antecubital; 07:26 Drug: Dilaudid - HYDROmorphone 0.5 mg [hydromorphone 1 mg/mL injection syringe (0.5 pml mL)] Route: IVP; Site: right antecubital; 07:45 Follow up: Pain 4/10 Adult; Response: Pain is decreased pml 09:35 Drug: Ondansetron 4 mg [ondansetron HCl 2 mg/mL intravenous solution (2 mL)] Route: pml IVP; Site: right antecubital; 09:47 Drug: Acetaminophen 650 mg [acetaminophen 325 mg tablet (2 tabs)] Route: PO; pml 09:47 Follow up: Response: Pt left department before re-evaluation is appropriate pml Intake: 07:06 IV: 1000.00ml; Total: 1000.00ml. pml Order Results: Lab Order: CBC with Diff; SPEC'M 01/10/17 05:01 Test: WHITE BLOOD COUNT; Value: 7.8; Range: 4.0-10.0; Units: K/mm3; Status: F Test: RED BLOOD COUNT; Value: 5.26; Range: 4.30-6.10; Units: M/mm3; Status: F Test: HEMOGLOBIN; Value: 15.8; Range: 14.0-18.0; Units: g/dl; Status: F Test: HEMATOCRIT; Value: 47.8; Range: 42.0-52.0; Units: %; Status: F Test: MEAN CORPUSCULAR VOLUME; Value: 90.9; Range: 80.0-96.0; Units: fl; Status: F Test: MEAN CORPUSCULAR HEMOGLOBIN; Value: 30.1; Range: 27.0-33.0; Units: pg; Status: F Test: MEAN CORPUSCULAR HGB CONC; Value: 33.1; Range: 32.0-36.5; Units: g/dl; Status: F Test: RED CELL DISTRIBUTION WIDTH; Value: 13.1; Range: 11.5-14.5; Units: %; Status: F Test: PLATELET COUNT, AUTOMATED; Value: 229; Range: 150-450; Units: k/mm3; Status: F Test: NEUTROPHILS %; Value: 77.3; Range: 36.0-66.0; Abnormal: Above high normal; Units: %; Status: F Test: LYMPH %; Value: 11.3; Range: 24.0-44.0; Abnormal: Below low normal; Units: %; Status: F Test: MONO %; Value: 8.6; Range: 0.0-5.0; Abnormal: Above high normal; Units: %; Status: F Test: EOS %; Value: 0.7; Range: 0.0-3.0; Units: %; Status: F Test: BASO %; Value: 0.5; Range: 0.0-1.0; Units: %; Status: F Test: LARGE UNSTAINED CELL %; Value: 1.7; Range: 0.0-4.0; Units: %; Status: F Test: NEUTROPHILS #; Value: 6.0; Range: 1.8-7.7; Units: K/mm3; Status: F Test: LYMPH #; Value: 1.0; Range: 1.5-6.5; Abnormal: Below low normal; Units: K/mm3; Status: F Test: MONO #; Value: 0.7; Range: 0.0-0.8; Units: K/mm3; Status: F Test: EOS #; Value: 0.0; Range: 0.0-0.50; Units: K/mm3; Status: F Test: BASO #; Value: 0.0; Range: 0.0-0.2; Units: K/mm3; Status: F Test: LARGE UNSTAINED CELL #; Value: 0.1; Range: 0.0-0.4; Units: K/mm3; Status: F Lab Order: MED Profile; SPEC'M 01/10/17 05:01 Test: GLUCOSE, FASTING; Value: 91; Range: 70-105; Units: MG/DL; Status: F Test: BLOOD UREA NITROGEN; Value: 17; Range: 7-18; Units: MG/DL; Status: F Test: CREATININE FOR GFR; Value: 1.36; Range: 0.70-1.30; Abnormal: Above high normal; Units: MG/DL; Status: F Test: SODIUM LEVEL; Value: 136; Range: 136-145; Units: MEQ/L; Status: F Test: POTASSIUM SERUM; Value: 4.1; Range: 3.5-5.1; Units: MEQ/L; Status: F Test: CHLORIDE LEVEL; Value: 98; Range: 98-107; Units: MEQ/L; Status: F Test: CARBON DIOXIDE LEVEL; Value: 28; Range: 21-32; Units: MEQ/L; Status: F Test: ANION GAP; Value: 10; Range: 8-16; Units: MEQ/L; Status: F Test: CALCIUM LEVEL; Value: 8.4; Range: 8.5-10.1; Abnormal: Below low normal; Units: MG/DL; Status: F Lab Order: Liver Profile; SPEC'M 01/10/17 05:01 Test: AST/SGOT; Value: 23; Range: 15-37; Units: U/L; Status: F Test: ALT/SGPT; Value: 38; Range: 12-78; Units: U/L; Status: F Test: ALKALINE PHOSPHATASE; Value: 61; Range: 45-117; Units: U/L; Status: F Test: BILIRUBIN,TOTAL; Value: 0.5; Range: 0.2-1.0; Units: MG/DL; Status: F Test: BILIRUBIN,DIRECT; Value: 0.1; Range: 0.0-0.2; Units: MG/DL; Status: F Test: TOTAL PROTEIN; Value: 8.1; Range: 6.4-8.2; Units: GM/DL; Status: F Test: ALBUMIN; Value: 3.7; Range: 3.2-5.2; Units: GM/DL; Status: F Test: ALBUMIN/GLOBULIN RATIO; Value: 0.84; Range: 1.00-1.93; Abnormal: Below low normal; Status: F Lab Order: Amylase; SPEC' 01/10/17 05:01 Test: AMYLASE; Value: 36; Range: 25-115; Units: U/L; Status: F Lab Order: Lipase; SPEC' 01/10/17 05:01 Test: LIPASE; Value: 87; Range: 73-393; Units: U/L; Status: F Lab Order: Urinalysis; SPEC' 01/10/17 05:01 Test: APPEARANCE, URINE; Value: HAZY; Range: CLEAR; Status: F Test: COLOR, URINE; Value: YELLOW; Range: YELLOW; Status: F Test: PH,URINE; Value: 5.0; Range: 5.0-9.0; Units: UNITS; Status: F Test: SPECIFIC GRAVITY URINE AUTO; Value: 1.029; Range: 1.002-1.035; Status: F Test: PROTEIN, URINE AUTO; Value: 1+; Range: NEGATIVE; Abnormal: Above high normal; Units: mg/dL; Status: F Test: GLUCOSE, URINE (UA) AUTO; Value: NEGATIVE; Range: NEGATIVE; Units: mg/dL; Status: F Test: KETONE, URINE AUTO; Value: 1+; Range: NEGATIVE; Abnormal: Above high normal; Units: mg/dL; Status: F Test: UROBILINOGEN, URINE AUTO; Value: 0.2; Range: 0.0-2.0; Units: mg/dL; Status: F Test: BILIRUBIN, URINE AUTO; Value: NEGATIVE; Range: NEGATIVE; Status: F Test: NITRITE, URINE AUTO; Value: NEGATIVE; Range: NEGATIVE; Status: F Test: LEUKOCYTE ESTERASE, URINE AUTO; Value: NEGATIVE; Range: NEGATIVE; Status: F Test: BLOOD, URINE BLOOD; Value: NEGATIVE; Range: NEGATIVE; Status: F Test: WBC, URINE AUTO; Value: 1; Range: 0-3; Units: /HPF; Status: F Test: RBC, URINE AUTO; Value: 1; Range: 0-3; Units: /HPF; Status: F Test: BACTERIA, URINE AUTO; Value: NEGATIVE; Range: NEGATIVE; Status: F Test: SQUAMOUS EPITHELIAL CELL UR AU; Value: 0; Range: 0-6; Units: /HPF; Status: F Test: MUCUS, URINE; Value: SMALL; Range: NEGATIVE; Status: F Test: HYALINE CAST, URINE AUTO; Value: 0; Range: 0-1; Units: /LPF; Status: F Lab Order: INFLUENZA A&B RAPID ANTIGEN; SPEC'M 01/10/17 08:51 Test: INFLUENZA A RAPID SCR by ICA; Value: INFLUENZA A RESULTS NEGATIVE; Status: F Test: INFLUENZA A RAPID SCR by ICA; Value: Comments:; Status: F Test: INFLUENZA B RAPID SCR by ICA; Value: INFLUENZA B RESULTS NEGATIVE; Status: F Test Note: ; The Influenza test is a direct rapid immunoassay for the qualitative detection of Influenza viral antigen. Cell culture (Viral Culture) testing should be considered to confirm NEGATIVE results and to assist in detecting other viruses that can provide similar clinical symptoms. Please contact the lab within 24 hours [phone]) if confirmatory testing is desired. Radiology Order: CT ABD & PELVIS: IV Contrast Only Test: CT ABD & PELVIS: IV Contrast Only REASON FOR EXAMINATION: Abdomen Pain; ; CLINICAL HISTORY: Abdominal pain.; TECHNIQUE: Multiple axial, sagittal and coronal CT images were obtained through the abdomen and pelvi; s after administration of intravenous contrast material.; COMMENTS:; The liver is of uniform attenuation without mass or defect. There is no intra or extrahepatic biliary; ductal dilatation. The spleen is normal. The gallbladder is within normal limits. The pancreas is of; normal contour and attenuation characteristics. There is no evidence of adrenal mass.; Both kidneys demonstrate prompt and equal nephrograms. The kidneys are normal in size, shape and conf; iguration. There is no evidence of renal or ureteral mass. No renal or ureteral calculi are identifie; d. There is no hydroureter or hydronephrosis.; Appendix is entirely filled with fluid and contains a small appendicolith, please correlate clinicall; y to exclude early or mild acute appendicitis. There is no bowel wall thickening. No evidence for sm; all or large bowel obstruction. There is no evidence of abdominal ascites or lymphadenopathy.; There is no evidence of intrinsic or extrinsic bladder mass. There is no pelvic ascites or lymphadeno; enrique.; Images of the lung bases show no evidence of pleural or parenchymal mass. There are no pleural effusi; ons.; The bony structures are free of lytic or blastic lesions.; IMPRESSION:; Appendix is entirely filled with fluid and contains a small appendicolith, please correlate clinicall; y to exclude early or mild acute appendicitis.; Thank you for your kind referral of this patient.; ; Outcome: 06:04 CT Study completed. sls1 08:51 Decision to Hospitalize by Provider. br1 09:43 Discharge Assessment: Patient awake, alert and oriented x 3. No cognitive and/or pml functional deficits noted. Patient verbalized understanding of disposition instructions. patient administered narcotics - yes. Patient was admitted to the hospital or transferred to another facility. The following High Risk Discharge criteria are identified: None. Admitted to Pediatrics accompanied by tech, via wheelchair, with chart. Condition: stable. Property :Personal belongings accompany Pt. 09:47 Patient left the ED. pml Signatures: Dispatcher [employer] EDMS Dwayne Andrew MD MD br1 Priscilla De Los Santos RN RN sls1 Elisha Conteh RN RN pml Jordan Corrales DO DO cs11 Helen Flowers RN RN af2 Dakota Boland rn1 Layla Richard, Reg Reg hs2 Charlene Richardson se Chart Complete MTDD
== END 2017-01-11 10:59 | disposition home or self-care (01) ==
LOC: M ED 04:23 → M ED INP 08:35 → M PED 10:00
PROVIDERS: ADMIT Surgery; ATTEND Surgery
DX: R10.13 Epigastric pain (principal); R11.2 Nausea with vomiting, unspecified; L40.9 Psoriasis, unspecified; Z79.899 Other long term (current) drug therapy
CPT/HCPCS: 36415; 74177; 80048; 80076; 81001; 82150; 83690; 85025; 87086; 87804; 96361; 96374; 96375; 96376; 99285; C9113; J1170; J1885; J2405; J2765; Q9967

== ENCOUNTER → 2017-01-13 | Outpatient (REF) | payer BC ==
[~2017-01-13] MED LIST: HUMI40KI SC; IBUP60TA PO
== END ==
LOC: M LAB REF 08:53
PROVIDERS: ATTEND Physician Assistant Medical
DX: B00.1 Herpesviral vesicular dermatitis (principal)

== ENCOUNTER → 2017-06-02 | Outpatient (REF) | payer BC ==
[~2017-06-02] MED LIST changes: +IBUP1TAB6 PO; -IBUP60TA PO
== END ==
LOC: M LAB REF 09:21
PROVIDERS: ATTEND Physician Assistant
DX: Z20.2 Contact with and (suspected) exposure to infections with a predominantly sexual mode of transmission (principal)

== ENCOUNTER 2018-11-03 04:59 | Inpatient (IN) | payer BC ==
[2018-11-03 05:23] LABS: HEMATOCRIT 45.4 % (42.0-52.0); HEMOGLOBIN 15.4 g/dl (13.5-17.5); MEAN CORPUSCULAR HEMOGLOBIN 30.7 pg (27.0-33.0); MEAN CORPUSCULAR HGB CONC 33.9 g/dl (32.0-36.5); MEAN CORPUSCULAR VOLUME 90.4 fl (80.0-96.0); PLATELET COUNT, AUTOMATED 315 10^3/uL (150-450); RED BLOOD COUNT 5.02 10^6/uL (4.30-6.10); RED CELL DISTRIBUTION WIDTH 12.7 % (11.5-14.5)
[2018-11-03 05:42] LABS: AMPHETAMINES LEVEL URINE NEGATIVE (NEGATIVE); BARBITURATES URINE NEGATIVE (NEGATIVE); BENZODIAZEPINES URINE NEGATIVE (NEGATIVE); CANNABINOIDS URINE NEGATIVE (NEGATIVE); COCAINE METABOLITE URINE NEGATIVE (NEGATIVE); METHADONE URINE NEGATIVE (NEGATIVE); OPIATES URINE NEGATIVE (NEGATIVE); PHENCYCLIDINE URINE NEGATIVE (NEGATIVE)
[2018-11-03 05:56] LABS: ACETAMINOPHEN LEVEL < 2.0 UG/ML (10.0-30.0); ALBUMIN 4.3 GM/DL (3.2-5.2); ALBUMIN/GLOBULIN RATIO 1.26 (1.00-1.93); ALKALINE PHOSPHATASE 64 U/L (45-117); ALT/SGPT 26 U/L (12-78); ANION GAP 11 MEQ/L (8-16); AST/SGOT 17 U/L (7-37); BILIRUBIN,DIRECT 0.2 MG/DL (0.0-0.2); BILIRUBIN,TOTAL 0.8 MG/DL (0.2-1.0); BLOOD UREA NITROGEN 12 MG/DL (7-18); CALCIUM LEVEL 8.5 MG/DL (8.5-10.1); CARBON DIOXIDE LEVEL 25 MEQ/L (21-32); CHLORIDE LEVEL 106 MEQ/L (98-107); CREATININE FOR GFR 1.12 MG/DL (0.70-1.30); ETHYL ALCOHOL (ETHANOL) 0.236 % (0.000-0.010); GLOMERULAR FILTRATION RATE > 60.0 (>60); GLUCOSE, FASTING 109 MG/DL (70-100); POTASSIUM SERUM 3.8 MEQ/L (3.5-5.1); SALICYLATE LEVEL < 1.7 MG/DL (5.0-30.0); SODIUM LEVEL 142 MEQ/L (136-145); TOTAL PROTEIN 7.7 GM/DL (6.4-8.2)
[2018-11-03] MEDS: diphenhydrAMINE INJ 50MG/ML VIAL (J1200) IM (07:27)
[2018-11-03] MEDS: HALOPERIDOL 5 MG/ML VIAL (J1630) IM (07:28)
[2018-11-03] MEDS ORDERED: traZODone 50 MG TAB PO (15:15)
[2018-11-03] MEDS ORDERED: MAALOX 30 ML SUSP *UDC PO (15:15)
[2018-11-03] MEDS ORDERED: MOM 30ML SUSPENSION UDC PO (15:15)
[2018-11-03] MEDS ORDERED: ACETAMINOPHEN TAB 650MG DOSE (2X325MG) PO (15:15)
[2018-11-03] MEDS ORDERED: LORazepam 2 MG TAB PO (15:15)
[2018-11-03] MEDS: THIAMINE 100 MG TAB PO (17:18)
[2018-11-04] MEDS: BETAMETHASONE TOP (09:00)
[2018-11-04] MEDS: NICOTINE 21MG/24HR 1 EA TRANSDERMAL TD (09:00)
[2018-11-04] MEDS: CALCIPOTRIENE TOP (09:00)
[2018-11-04] MEDS: FOLIC ACID 1 MG TAB PO (09:45)
[2018-11-04] MEDS: THIAMINE 100 MG TAB PO (09:46)
[2018-11-04] MEDS: MULTIVITAMINS/MINERALS THERAP 1 TAB PO (09:46)
== END 2018-11-04 13:50 | disposition home or self-care (01) | DRG 754 ==
LOC: M ED 04:59 → M ED INP 15:08 → M PSY 15:53
DX: F32.9 Major depressive disorder, single episode, unspecified (principal); F19.94 Other psychoactive substance use, unspecified with psychoactive substance-induced mood disorder; F10.10 Alcohol abuse, uncomplicated; F12.90 Cannabis use, unspecified, uncomplicated; F41.9 Anxiety disorder, unspecified; K21.9 Gastro-esophageal reflux disease without esophagitis; L40.8 Other psoriasis; F17.200 Nicotine dependence, unspecified, uncomplicated

== ENCOUNTER → 2020-01-08 | Outpatient (REF) | payer BC ==
[~2020-01-08] MED LIST changes: +STEL90IN SC; +[UNRECOGNIZED DRUG - CODE] EXT
[2020-01-08 18:59] LABS: INFLUENZA A AMPLIFICATION NEGATIVE (NEGATIVE); INFLUENZA B AMPLIFICATION NEGATIVE (NEGATIVE)
== END ==
LOC: M LAB REF 17:57
PROVIDERS: ATTEND Physician Assistant Medical
DX: J11.1 Influenza due to unidentified influenza virus with other respiratory manifestations (principal)

== ENCOUNTER → 2021-05-07 | Outpatient (CLI) | payer BC ==
[2021-05-07 18:35] LABS: HEMATOCRIT 44.1 % (42.0-52.0); HEMOGLOBIN 14.2 g/dl (13.5-17.5); MEAN CORPUSCULAR HEMOGLOBIN 29.8 pg (27.0-33.0); MEAN CORPUSCULAR HGB CONC 32.2 g/dl (32.0-36.5); MEAN CORPUSCULAR VOLUME 92.6 fl (80.0-96.0); PLATELET COUNT, AUTOMATED 264 10^3/uL (150-450); RED BLOOD COUNT 4.76 10^6/uL (4.30-6.10); WHITE BLOOD COUNT 6.6 10^3/uL (4.0-10.0)
[2021-05-07 18:47] LABS: ALBUMIN 4.2 GM/DL (3.2-5.2); ALT/SGPT 34 U/L (12-78); BILIRUBIN,TOTAL 0.7 MG/DL (0.2-1.0); BLOOD UREA NITROGEN 15 MG/DL (7-18); CALCIUM LEVEL 8.9 MG/DL (8.5-10.1); CARBON DIOXIDE LEVEL 28 MEQ/L (21-32); CHLORIDE LEVEL 106 MEQ/L (98-107); CREATININE FOR GFR 1.05 MG/DL (0.70-1.30); GLOMERULAR FILTRATION RATE > 60.0 (>60); GLUCOSE, FASTING 89 MG/DL (70-100); POTASSIUM SERUM 4.1 MEQ/L (3.5-5.1); SODIUM LEVEL 138 MEQ/L (136-145); TOTAL PROTEIN 7.1 GM/DL (6.4-8.2)
== END ==
LOC: M WUC 11:25
PROVIDERS: ATTEND Dermatology
DX: D22.5 Melanocytic nevi of trunk (principal); Z79.899 Other long term (current) drug therapy; Z71.89 Other specified counseling

== ENCOUNTER 2021-07-10 12:23 | Emergency (ER) | payer BC ==
[~2021-07-10] VITALS: Ht 175.3 cm; Wt 86.4 kg
[2021-07-10 12:24] VITALS: BP 141/77
[2021-07-10] MEDS ORDERED: HUMI40KI SC (12:31)
== END 2021-07-10 13:00 | disposition left against medical advice (07) ==
LOC: M ED 12:23
DX: Z53.29 Procedure and treatment not carried out because of patient's decision for other reasons (principal)

== ENCOUNTER → 2021-07-25 | Outpatient (CLI) | payer BC ==
--- NOTE | 2021-07-25 12:29 | REP ---
INDICATION: LT AXILLARY LUMP ? SOLID VS CYST. COMPARISON: None. TECHNIQUE: Real-time sonographic evaluation of left axilla and chest wall per for in the region of pain. FINDINGS: In the left axilla there are 2 morphologically normal appearing lymph nodes present both demonstrating an echogenic fatty hilum. These measure 9 x 8 x 9 mm and 1.8 x 0.7 x 1.0 cm. In the left chest wall and flank no sonographic abnormality is seen. IMPRESSION: Morphologically normal appearing lymph nodes in the left axilla. No other significant abnormality identified sonographically. <Electronically signed by Christiano Kim > 07/25/21 [id number]
== END ==
LOC: M RAD 11:43
PROVIDERS: ATTEND Physician Assistant
DX: R07.89 Other chest pain (principal); M79.622 Pain in left upper arm

== ENCOUNTER → 2021-12-10 | Outpatient (CLI) | payer BC | LOC: M EKG 12:53 | PROVIDERS: ATTEND Physician Assistant | DX: R00.2 Palpitations (principal) ==

== ENCOUNTER → 2022-11-13 | Outpatient (CLI) | payer BC ==
[2022-11-13 17:57] LABS: ALKALINE PHOSPHATASE 55 U/L (46-116); ALT/SGPT 25 U/L (7.0-40); AST/SGOT 19 U/L (<34); BILIRUBIN,TOTAL 0.5 MG/DL (0.3-1.2); BLOOD UREA NITROGEN 12 MG/DL (9-23); CALCIUM LEVEL 9.4 MG/DL (8.5-10.1); CARBON DIOXIDE LEVEL 27 MMOL/L (20-31); CHLORIDE LEVEL 105 MMOL/L (98-107); CREATININE FOR GFR 0.92 MG/DL (0.70-1.30); GLOMERULAR FILTRATION RATE > 60.0 (>60); GLUCOSE, FASTING 99 MG/DL (60-100); POTASSIUM SERUM 4.1 MMOL/L (3.5-5.1); SODIUM LEVEL 139 MMOL/L (136-145); TOTAL PROTEIN 6.8 G/DL (5.7-8.2)
[2022-11-13 17:58] LABS: HEMATOCRIT 44.5 % (42.0-52.0); HEMOGLOBIN 14.6 g/dl (13.5-17.5); MEAN CORPUSCULAR HGB CONC 32.8 g/dl (32.0-36.5); MEAN CORPUSCULAR VOLUME 91.6 fl (80.0-96.0); PLATELET COUNT, AUTOMATED 278 10^3/uL (150-450); RED BLOOD COUNT 4.86 10^6/uL (4.30-6.10); WHITE BLOOD COUNT 5.5 10^3/uL (4.0-10.0)
[2022-11-13 18:05] LABS: HEPATITIS B SURFACE ANTIBODY NEGATIVE (POSITIVE)
[2022-11-13 18:17] LABS: HEPATITIS B SURFACE ANTIGEN NEGATIVE (NEGATIVE)
[2022-11-13 18:38] LABS: HEPATITIS C VIRUS ABY INDEX 0.1 INDEX (<0.8)
[2022-11-15 23:07] LABS: HEPATITIS B CORE ANTIBODY IGG Negative (Negative)
== END ==
LOC: M WUC 13:00
PROVIDERS: ATTEND Dermatology
DX: Z79.899 Other long term (current) drug therapy (principal)

== ENCOUNTER → 2023-08-05 | Outpatient (CLI) | payer BC | LOC: M OUTALCOH 08:03 | PROVIDERS: ATTEND Psychiatry & Neurology Psychiatry | DX: F10.10 Alcohol abuse, uncomplicated (principal) ==

== ENCOUNTER → 2023-09-14 | Outpatient (RCR) | payer BC | LOC: M OUTALCOH 08-17 15:35 | PROVIDERS: ATTEND Psychiatry & Neurology Psychiatry | DX: F10.20 Alcohol dependence, uncomplicated (principal); F14.20 Cocaine dependence, uncomplicated ==

== ENCOUNTER → 2023-10-04 | Outpatient (CLI) | payer BC | LOC: M LAB 13:23 | PROVIDERS: ATTEND Physician Assistant Medical | DX: K21.9 Gastro-esophageal reflux disease without esophagitis (principal); R06.02 Shortness of breath; R10.9 Unspecified abdominal pain ==

== ENCOUNTER → 2024-09-28 | Outpatient (CLI) | payer BC ==
[2024-09-28 13:09] LABS: ALBUMIN 3.8 G/DL (3.2-5.2); ALKALINE PHOSPHATASE 51 U/L (40-129); ALT/SGPT 34 U/L (7.0-40); AST/SGOT 16 U/L (<34); BILIRUBIN,TOTAL 0.4 MG/DL (0.3-1.2); BLOOD UREA NITROGEN 15 MG/DL (9-23); CALCIUM LEVEL 10.3 MG/DL (8.5-10.1); CARBON DIOXIDE LEVEL 28 MMOL/L (20-31); CHLORIDE LEVEL 108 MMOL/L (98-107); CREATININE FOR GFR 0.99 MG/DL (0.70-1.30); GLOMERULAR FILTRATION RATE > 60.0 (>60); GLUCOSE, FASTING 86 MG/DL (60-100); POTASSIUM SERUM 4.4 MMOL/L (3.5-5.1); SODIUM LEVEL 140 MMOL/L (136-145); TOTAL PROTEIN 6.9 G/DL (5.7-8.2)
[2024-09-28 13:12] LABS: BASO # 0.1 10^3/uL (0.0-0.2); EOS # 0.2 10^3/uL (0.0-0.5); EOS % 4.1 % (0.0-3.0); HEMATOCRIT 42.7 % (42.0-52.0); HEMOGLOBIN 13.6 g/dl (13.5-17.5); LYMPH # 1.1 10^3/uL (1.5-5.0); LYMPH % 22.1 % (24.0-44.0); MEAN CORPUSCULAR HEMOGLOBIN 29.1 pg (27.0-33.0); MEAN CORPUSCULAR HGB CONC 31.9 g/dl (32.0-36.5); MEAN CORPUSCULAR VOLUME 91.4 fl (80.0-96.0); MONO # 0.4 10^3/uL (0.0-0.8); MONO % 8.7 % (2.0-8.0); NEUTROPHILS # 3.1 10^3/uL (1.5-8.5); NEUTROPHILS % 63.9 % (36.0-66.0); PLATELET COUNT, AUTOMATED 304 10^3/uL (150-450); RED BLOOD COUNT 4.67 10^6/uL (4.30-6.10); WHITE BLOOD COUNT 4.9 10^3/uL (4.0-10.0)
== END ==
LOC: M WUC 09:54
PROVIDERS: ATTEND Dermatology
DX: Z79.899 Other long term (current) drug therapy (principal)